=== PATIENT | female | born 1990 | race Caucasian/White ===

== ENCOUNTER 2025-02-17 13:07 | Day surgery (SDC) | payer BC, SELFPAY ==
[2025-02-15 09:57] VITALS: BMI 32.8
--- NOTE | 2025-02-16 16:41 | EXP.HP ---
History of Present Illness *Admission Date: 02/17/25 *History of present illness: Ms. Morrow is a 35-year-old female who is here for diagnostic EGD. She has had exacerbation of her diarrhea predominant irritable bowel syndrome. The patient has had longstanding IBS with diarrhea and previously was diagnosed with SIBO. She did improve 9 years ago when she had seen me with low FODMAP diet. Over the last year, her symptoms have worsened. She has tried to stick with the low FODMAP diet and does note that garlic is a trigger for her symptoms. She reports bowel frequency and some bowel urgency with some mucus with her bowel movement but no blood. She has moderate bloating, lower abdominal discomfort and some bloating. She did receive a course of Xifaxan which helped temporarily but then her symptoms recurred. She reports no weight loss or rectal bleeding. She did have a EGD and colonoscopy with me 9 years ago that were essentially normal. She did have an ultrasound of the gallbladder that was normal. She does not drink alcohol. The examination is deemed medically necessary for diagnostic EGD. The patient has been seen, interviewed and examined prior to the procedure by both myself and the anesthesia provider. [facility] Disclaimer: The information contained in this section may have been updated after the patient was seen, as this information can be updated by other users. Medical History (Updated 02/17/25 @ 13:37 by Jazzmine Chu RN) History of COVID-19 Irritable bowel syndrome (IBS) Cyst of right breast Small intestinal bacterial overgrowth (SIBO) Family History (Updated 02/17/25 @ 13:37 by Jazzmine Chu RN) Other Hypertension Social History Smoking Status: Never smoker alcohol intake: never substance use type: denies use current occupational status: employed Travel in the last 8 weeks?: None caffeine: Yes Have you lived/traveled outside [place] in past 30 days?: No Contact w/someone who lives/traveled outside [place] past 30 days?: No Exposure to someone with infectious disease in past 14 days?: No Do you have a fever (greater than 100.4 F or 38 C)?: No Have you tested positive for COVID-19?: No Exposed to someone with COVID-19 in past 14 days?: No Do you have a sore throat?: No Do you have a cough?: No Do you have any weakness?: No Are you experiencing any nausea/vomitting?: No Do you have any diarrhea?: No Are you experiencing any unusual bleeding?: No Do you have any muscle aches/pain?: No Do you have any abdominal pain?: No Are you experiencing loss of taste or smell?: No Review of Systems Review of Systems Review of systems (narrative): Negative *Cardiovascular Comments: Negative *Gastrointestinal Comments: Negative *Genitourinary Comments: Negative *Musculoskeletal Comments: Negative *Neurologic Comments: Negative Meds Home Medications and Allergies Home Medications ?Medication ?Instructions ?Recorded ?Confirmed ?Type eluxadoline 100 mg tablet (Viberzi) 100 mg PO BID #60 tabs 12/22/24 02/17/25 Rx New Prescriptions to Start Prescriptions: Allergies Allergy/AdvReac Type Severity Reaction Status Date / Time [facility] Allergy Rash Verified 02/17/25 13:30 Exam Data for Last 24 hours I & O for Last 24 hours: Intake & Output 02/13/25 02/14/25 02/15/25 02/16/25 22:59 23:59 23:59 23:59 Weight 185 lb *Routine HEENT Exam Head: Present normocephalic Eye: Present EOMI and PERRL ENT: Present mucous membranes moist *Routine Neck Exam Neck: Present supple *Routine Respiratory Exam Respiratory: Present CTA bilaterally *Routine Cardiovascular Exam Cardiovascular: Present RRR *Routine Abdominal Exam Abdominal: Present soft and normoactive bowel sounds; Absent tenderness *Routine Rectal Exam Rectal:: deferred *Routine Genitalia Exam Genitalia:: deferred *Routine Extremities Exam Extremities: Absent cyanosis, clubbing or edema *Routine Skin Exam Skin: Present warm; Absent rash *Routine Neurological Exam Neurological: Present alert and oriented X3 Assessment and Plan *Assessment and plan (1) Bloating: Status: Acute Category: Medical Code(s): R14.0 - Abdominal distension (gaseous) (2) Bilateral lower abdominal discomfort: Status: Acute Category: Medical Code(s): R10.31 - Right lower quadrant pain; R10.32 - Left lower quadrant pain (3) Mucus in stool: Status: Acute Category: Medical Code(s): R19.5 - Other fecal abnormalities Plan A/P: 1. Diarrhea, change in bowel habits with bloating, abdominal discomfort and mucus in stool is the preprocedural diagnosis. The patient will be anesthetized/sedated using MAC sedation. The patient has been seen and examined. Cardiac and lung assessment prior to the examination is stable. Proceed with planned diagnostic EGD.
--- NOTE | 2025-02-17 06:50 | HMH.PROCNOTE ---
[facility] Procedure Note Date: 02/17/25 Time: 14:58 Procedure Note:: Upper Endoscopy Procedure Report: Esophagogastroduodenoscopy with cold biopsies Endoscopost: Greg Ha II, MD Referring Physician: Alberto Francois PA-C, [address], [place] [address] Date of Procedure: February 17, 2025 Equipment: Olympus GIF-1100 standard upper endoscope Sedation: MAC sedation Indications: Ms. Morrow is a 35-year-old female who is here for diagnostic EGD. She does get some epigastric abdominal discomfort and dyspepsia. She reports some early satiety and occasional nausea. She has had exacerbation of her diarrhea predominant irritable bowel syndrome. The patient has had longstanding IBS with diarrhea and previously was diagnosed with SIBO. She did improve 9 years ago when she had seen me with low FODMAP diet. Over the last year, her symptoms have worsened. She has tried to stick with the low FODMAP diet and does note that garlic is a trigger for her symptoms. She reports bowel frequency and some bowel urgency with some mucus with her bowel movement but no blood. She has moderate bloating, lower abdominal discomfort and some bloating. She did receive a course of Xifaxan which helped temporarily but then her symptoms recurred. She reports no weight loss or rectal bleeding. She did have a EGD and colonoscopy with me 9 years ago that were essentially normal. She did have an ultrasound of the gallbladder that was normal. She does not drink alcohol. The examination is deemed medically necessary for diagnostic EGD. Procedure: Prior to the procedure, a history and physical exam was performed, and patient's medications and allergies were reviewed. The risks, benefits and alternatives of the sedation and procedure were discussed with the patient. All questions were answered and informed consent was obtained. The patient was brought to the procedure room. Patient identification and proposed procedure were verified by the physician and the nurse. The patient was placed in a left lateral decubitus position and the scope was passed under direct vision. Throughout the procedure, the patient's blood pressure, pulse, and oxygen saturations were monitored continuously. The upper GI endoscopy was accomplished without difficulty. The patient tolerated the procedure well. Findings: The scope was passed directly into the upper esophagus and advanced to the third portion of the duodenum. The post bulbar duodenum and duodenal bulb were normal with normal mucosa and conniventes. Cold biopsies were taken from the second portion of the duodenum for the disaccharidase assay. Cold biopsies were taken from the first portion of the duodenum and duodenal bulb to rule out celiac disease. There was no evidence of any scalloping of the conniventes. The scope was withdrawn through a normal duodenal bulb and pylorus into the stomach. There was mild linear antral gastropathy. The body and fundus of the stomach were normal. Cold biopsies were taken from the antrum. Upon retroflexion there was a small 2 cm sliding hiatal hernia. The scope was then withdrawn into the esophagus. There was no evidence of reflux esophagitis or Gerardo's and the remainder of the esophageal mucosa was normal. Impression: 1. Small 2 cm sliding hiatal hernia 2. Mild linear reactive gastropathy of antrum Plan: I will follow-up the biopsies and the disaccharidase assay. If the biopsies are normal, I would consider Fodzyme. We will also discuss her IBS?D and best treatment options (i.e. Viberzi).
[2025-02-17 13:23] VITALS: BP 129/76; PULSE 89; RESP 18; TEMP 36.2; O2SAT 97
[2025-02-17] MEDS: LACTATED RINGERS 1000ML 1,000 ML 50 ML IV (13:38)
[2025-02-17 13:39] LABS: Urine Pregnancy, HCG Qual. Negative (Negative)
--- NOTE | 2025-02-17 13:42 | P.PNANES_ITS ---
[facility] Disclaimer: The information contained in this section may have been updated after the patient was seen, as this information can be updated by other users. Medical History (Updated 02/17/25 @ 13:37 by Jazzmine Chu RN) History of COVID-19 Irritable bowel syndrome (IBS) Cyst of right breast Small intestinal bacterial overgrowth (SIBO) Family History (Updated 02/17/25 @ 13:37 by Jazzmine Chu RN) Other Hypertension Social History Smoking Status: Never smoker alcohol intake: never substance use type: denies use current occupational status: employed Travel in the last 8 weeks?: None caffeine: Yes Have you lived/traveled outside [place] in past 30 days?: No Contact w/someone who lives/traveled outside [place] past 30 days?: No Exposure to someone with infectious disease in past 14 days?: No Do you have a fever (greater than 100.4 F or 38 C)?: No Have you tested positive for COVID-19?: No Exposed to someone with COVID-19 in past 14 days?: No Do you have a sore throat?: No Do you have a cough?: No Do you have any weakness?: No Are you experiencing any nausea/vomitting?: No Do you have any diarrhea?: No Are you experiencing any unusual bleeding?: No Do you have any muscle aches/pain?: No Do you have any abdominal pain?: No Are you experiencing loss of taste or smell?: No [facility] Anesthesia Checklist Patient Identification Patient Identification: Arm Band and Verbal (Name & ) Structural Data Admitted From: Home Planned Operative Procedure/s: EGD Consent for Planned Operative Procedure(s) Verified: Yes Verified Documents: Surgical Consent NPO Status Verified Time NPO: 00:00 Chart Verification Results Verified: HCG Additional verifications Patient : No Anesthesia Reactions: No Airway Assessment Mallampati Score:: Class II C-Spine Mobility Assessed: Yes TMJ Mobility Assessed: Yes Dentition: Good Dentition Neurological Assessment Level of Consciousness: Awake, Alert and Appropriate Hx Seizures: No Numbness or tingling in extremities: No Anesthesia Plan Anesthesia Risk discussed: Yes Anesthesia Plan: Verified ASA Class: I Anesthesia Type: MAC
[2025-02-17 14:59] VITALS: BP 121/77; PULSE 95; RESP 18; TEMP 36.4; O2SAT 94
[2025-02-17 15:09] VITALS: BP 121/81; PULSE 96; RESP 18; O2SAT 97
[2025-02-17 15:19] VITALS: BP 120/80; PULSE 87; RESP 16; O2SAT 99
[2025-02-23 14:12] LABS: Interpretation Notes (.); Lactase 25.2 (>/= 14.0); Maltase 102.78 (>/= 110.0); Palatinase 8.51 (>/= 8.5); Reference Notes (.); Sucrase 23.57 (>/= 25.0)
== END 2025-02-17 15:23 | disposition home or self-care (01) ==
PROVIDERS: PCP Physician Assistant; Visit Provider Internal Medicine Gastroenterology
PROC: 0DJ08ZZ Inspection of Upper Intestinal Tract, Via Natural or Artificial Opening Endoscopic (ICD-10-PCS; CPT 43239; principal; 2025-02-17 14:30)
DX: K44.9 Diaphragmatic hernia without obstruction or gangrene (principal); K31.89 Other diseases of stomach and duodenum; K58.9 Irritable bowel syndrome, unspecified; K63.8219 Small intestinal bacterial overgrowth, unspecified; Z88.1 Allergy status to other antibiotic agents
CPT/HCPCS: 43239; 81025; 82657; J2003; J2704; J7120